=== PATIENT | female | born 1955 | race Caucasian/White ===

== ENCOUNTER 2017-01-25 14:55 | Emergency (ER) | payer OTHER ==
[~2017-01-25] VITALS: Ht 172.7 cm; Wt 70.3 kg
--- NOTE | 2017-01-25 15:25 | NUR ---
CLEANED RIGHT ARM WITH NS. APPLIED 4X4 NONADHERENT DRESSING WITH CONFORMING BANDAGE AND TAPE. ORDERED BY MD WILSON
--- NOTE | 2017-01-25 15:43 | NUR ---
Patient discharged to home in stable conditon. Written and verbal after care instructions given. Patient verbalizes understanding of instructions. No further questions or concerns noted prior on leaving the ED.
[2017-01-25] MEDS ORDERED: HYDROCODONE/APAP 10-325 MG TABLET PO ONE (15:45)
[2017-01-25] MEDS ORDERED: HYDROCODONE/APAP 10-325 MG TABLET ONE (15:52)
== END 2017-01-25 15:45 | disposition home or self-care (01) ==
LOC: ER 15:08
DX: Z48.01 Encounter for change or removal of surgical wound dressing (principal); L02.413 Cutaneous abscess of right upper limb; F11.10 Opioid abuse, uncomplicated
CPT/HCPCS: 99283; A4663

== ENCOUNTER 2017-03-20 00:32 | Emergency (ER) | payer OTHER ==
[~2017-03-20] VITALS: Ht 160 cm; Wt 70.3 kg
--- NOTE | 2017-03-20 01:11 | NUR ---
Patient discharged to home in stable conditon. Written and verbal after care instructions given. Patient verbalizes understanding of instructions.
== END 2017-03-20 01:12 | disposition home or self-care (01) ==
LOC: ER 00:34 → EDSEX 00:34 → ER 01:12
DX: L01.00 Impetigo, unspecified (principal); J45.909 Unspecified asthma, uncomplicated; F19.10 Other psychoactive substance abuse, uncomplicated; M19.90 Unspecified osteoarthritis, unspecified site
CPT/HCPCS: A4663